=== PATIENT | male | born 1945 | race Caucasian/White ===

== ENCOUNTER 2021-12-07 08:07 | Outpatient (REF) | payer MEDICARE, OTHER, SELFPAY ==
--- NOTE | ~2021-12-07 | XR_ITS ---
EXAMINATION: XR KNEES, STANDING AP XR KNEE, LEFT CLINICAL INFORMATION: Knee pain. M25.561, M25.562 COMPARISON: None TECHNIQUE: Standing AP view of both knees is performed. The left humerus is also imaged in lateral and axial patella views. FINDINGS: Right: Normal bony mineralization. Narrowing medial knee joint compartment. No erosive change or chondrocalcinosis. Left: Osteoarthritis greatest medial knee joint compartment with prominent joint narrowing and secondary genu areas. Small central osteophytes at medial femoral condyle. No erosive change or visible chondrocalcinosis. Small suprapatellar effusion suspected. Hoffa's fat pad unremarkable. Corticated ossicle at anterior tibial spine possibly loose body. There are degenerative changes also involving the medial patellofemoral joint. Scattered atherosclerotic calcifications involve the vasculature. 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 Question loose body. -Degenerative changes medial patellofemoral joint. Small effusion. -Atherosclerotic calcifications vasculature. Right: -Osteoarthritis medial compartment, lesser compared with left.
--- NOTE | ~2021-12-07 | XR_ITS ---
EXAMINATION: XR KNEES, STANDING AP XR KNEE, LEFT CLINICAL INFORMATION: Knee pain. M25.561, M25.562 COMPARISON: None TECHNIQUE: Standing AP view of both knees is performed. The left humerus is also imaged in lateral and axial patella views. FINDINGS: Right: Normal bony mineralization. Narrowing medial knee joint compartment. No erosive change or chondrocalcinosis. Left: Osteoarthritis greatest medial knee joint compartment with prominent joint narrowing and secondary genu areas. Small central osteophytes at medial femoral condyle. No erosive change or visible chondrocalcinosis. Small suprapatellar effusion suspected. Hoffa's fat pad unremarkable. Corticated ossicle at anterior tibial spine possibly loose body. There are degenerative changes also involving the medial patellofemoral joint. Scattered atherosclerotic calcifications involve the vasculature. 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 Question loose body. -Degenerative changes medial patellofemoral joint. Small effusion. -Atherosclerotic calcifications vasculature. Right: -Osteoarthritis medial compartment, lesser compared with left.
== END 2021-12-07 08:08 | disposition home or self-care (01) ==
LOC: HO.HOSX 08:07
PROVIDERS: Visit Provider Physician Assistant
DX: M25.561 Pain in right knee (principal); M25.562 Pain in left knee; M70.52 Other bursitis of knee, left knee; M17.12 Unilateral primary osteoarthritis, left knee; M21.162 Varus deformity, not elsewhere classified, left knee; B95.7 Other staphylococcus as the cause of diseases classified elsewhere; Z88.2 Allergy status to sulfonamides
CPT/HCPCS: 73560; 73565; 99202